=== PATIENT | female | born 1990 | race Caucasian/White ===

== ENCOUNTER → 2021-12-05 | Outpatient (CLI) | payer OTHER | LOC: MHCPAIN 08:24 | DX: M47.812 Spondylosis without myelopathy or radiculopathy, cervical region (principal); M54.2 Cervicalgia; M54.81 Occipital neuralgia | CPT/HCPCS: G0463 ==

== ENCOUNTER → 2021-12-19 | Outpatient (CLI) | payer OTHER | LOC: MHCPAIN 13:24 | DX: M79.18 Myalgia, other site (principal); M25.511 Pain in right shoulder; M54.2 Cervicalgia; M54.6 Pain in thoracic spine | CPT/HCPCS: J1040 ==

== ENCOUNTER → 2022-01-03 | Outpatient (CLI) | payer OTHER | LOC: MHCPAIN 13:42 | DX: M47.812 Spondylosis without myelopathy or radiculopathy, cervical region (principal); M25.511 Pain in right shoulder; M79.641 Pain in right hand; M54.12 Radiculopathy, cervical region | CPT/HCPCS: G0463 ==

== ENCOUNTER → 2022-02-01 | Outpatient (CLI) | payer OTHER | LOC: MHCPAIN 09:28 | DX: M47.812 Spondylosis without myelopathy or radiculopathy, cervical region (principal); M54.12 Radiculopathy, cervical region | CPT/HCPCS: J0461; J1100; Q9967 ==

== ENCOUNTER → 2022-02-21 | Outpatient (CLI) | payer OTHER | LOC: MHCPAIN 11:16 | DX: M54.2 Cervicalgia (principal); M54.81 Occipital neuralgia; G44.86 Cervicogenic headache; M47.812 Spondylosis without myelopathy or radiculopathy, cervical region | CPT/HCPCS: G0463 ==